=== PATIENT | female | born 1980 | race African-American/Black ===

== ENCOUNTER 2019-08-06 23:41 | Emergency (ER) | payer MEDICAID ==
[~2019-08-06] VITALS: Ht 162.6 cm; Wt 91.0 kg
[2019-08-07 00:08] VITALS: BP 139/89
[2019-08-07] MEDS ORDERED: ERYTHROMYCIN BASE 0.5% OPHTH OINT 3.5GM RIGHTEYE ONE (00:45)
== END 2019-08-07 02:49 | disposition home or self-care (01) ==
LOC: ER 08-07 01:05
DX: H10.021 Other mucopurulent conjunctivitis, right eye (principal); Z98.890 Other specified postprocedural states
CPT/HCPCS: 99283